=== PATIENT | male | born 2000 | race African-American/Black ===

== ENCOUNTER 2020-10-10 18:49 | Emergency (ER) | payer SELFPAY ==
[~2020-10-10] VITALS: Ht 182.8 cm; Wt 78.3 kg
[2020-10-10] MEDS ORDERED: DOXYCYCLINE 100 MG (VIBRAMYCIN) TABLET PO STA (19:18)
[2020-10-10] MEDS ORDERED: DOXY100T2 PO (19:22)
[2020-10-10] MEDS ORDERED: TRM50T PO (19:22)
--- NOTE | 2020-10-10 19:25 | ED Integumentary General ---
General Chief Complaint: Skin/Wound Problems Stated Complaint: ABSCESS ON RT BUTTOCK Nursing Triage Note: pt reports perianal abscess, seen at [facility] [place] and they could not do anything for him. States size of baseball, unable to sit, history of same. Source: patient Exam Limitations: no limitations History of Present Illness Date Seen by Provider: Oct 10, 2020 Time Seen by Provider: 19:10 Initial Comments 19-year-old male presents with complaint of abscess on his buttock for the past 3-4 days. Seen at the urgent care and sent to the ER. States had similar abscesses in different areas, most recently in the last 2 months which was incised and drained and healed without incident. Allergies and Home Medications Allergies Coded Allergies: No Known Drug Allergies (Unverified , 10/10/20) Home Medications Doxycycline Hyclate 100 Mg Tablet, 100 MG PO BID Prescribed by: ROB CALLAHAN on 10/10/201921 Tramadol HCl 50 Mg Tablet, 50 MG PO Q6H PRN for PAIN Prescribed by: ROB CALLAHAN on 10/10/201931 Patient Home Medication List Home Medication List Reviewed: Yes Review of Systems Review of Systems Constitutional: No chills, No fever, No malaise Gastrointestinal: No abdominal pain, No constipation, No diarrhea, No nausea, No vomiting Skin: see HPI, lumps; No pruritus, No rash Past Wgbwyxu-Zsorsy-Dyvnpw Hx Past Med/Social Hx: Reviewed Nursing Past Med/Soc Hx Patient Social History Recent Foreign Travel: No Contact w/Someone Who Travel: No Recent Infectious Disease Expo: No Recent Hopitalizations: No Ebola Symptoms: Denies Symptoms Listed Physical Abuse: No Sexual Abuse: No Seasonal Allergies Seasonal Allergies: No Past Medical History Surgeries: Yes Respiratory: Yes Asthma Cardiac: No Neurological: No Genitourinary: No Gastrointestinal: No Musculoskeletal: No Endocrine: No HEENT: No Cancer: No Psychosocial: No Integumentary: Yes Blood Disorders: No Adverse Reaction/Blood Tranf: No Physical Exam Vital Signs Vital Signs - First Documented 10/10/20 19:00 Temp 36.8 Pulse 115 Resp 14 B/P (MAP) 140/76 Pulse Ox 95 O2 Delivery Room Air Capillary Refill : General Appearance: WD/WN, no apparent distress Skin: normal color, warm/dry, other (R buttock w indurated area (not saurabh-anal) of mid buttock at gluteal crease. Indurated firm tissue without fluctuance or pointing. No surrounding erythema or drainage.) Progress/Results/Core Measures Results/Orders My Orders Orders - ROB CALLAHAN DO Doxycycline Hyclate Tablet (Vibramycin T (10/10/20 19:18) Tramadol Tablet (Ultram Tablet) (10/10/20 19:30) Medications Given in ED Current Medications Medications Dose Ordered Sig/Harjit Route Start Time Stop Time Status Last Admin Dose Admin Tramadol HCl 50 mg ONCE ONCE PO 10/10/20 19:30 10/10/20 19:31 DC 10/10/20 19:34 50 MG Vital Signs/I&O 10/10/20 19:00 Temp 36.8 Pulse 115 Resp 14 B/P (MAP) 140/76 Pulse Ox 95 O2 Delivery Room Air Progress Progress Note : Progress Note Discussed options of po antibiotics with symptomatic and expectant care of avoiding contact, sitz baths and follow up if not improving in 2 to 3 days to re-consider I&D. Explained that at this stage, I&D seemed unlikely to make a difference. Departure Impression Primary Impression: Abscess Disposition: 01 HOME, SELF-CARE Condition: Stable Departure-Patient Inst. Decision time for Depature: 19:21 Patient Instructions: Skin Abscess Add. Discharge Instructions: Follow up with your PCP or the nearest ER if you are not improving in 2 to 3 days All discharge instructions reviewed with patient and/or family. Voiced understanding. Scripts Tramadol HCl (Tramadol HCl) 50 Mg Tablet 50 MG PO Q6H PRN for PAIN for 3 Days, #12 TAB 0 Refills Prov: ROB CALLAHAN DO 10/10/20 Doxycycline Hyclate (Doxycycline Hyclate) 100 Mg Tablet 100 MG PO BID, #20 TAB 0 Refills Prov: ROB CALLAHAN DO 10/10/20 ROB CALLAHAN DO Oct 10, 2020 19:25
== END 2020-10-10 19:46 | disposition home or self-care (01) ==
LOC: ER FS 18:51
DX: L02.31 Cutaneous abscess of buttock (principal)
CPT/HCPCS: 99283

== ENCOUNTER 2022-06-09 16:27 | Emergency (ER) | payer OTHER ==
[~2022-06-09] VITALS: Ht 182 cm; Wt 82.0 kg
[~2022-06-09 16:27] MED LIST: DOXY100T2 PO; TRM50T PO
[2022-06-09 16:37] VITALS: BP 133/74
[2022-06-09 16:57] LABS: BILIRUBIN,URINE NEGATIVE (NEGATIVE); CLARITY,URINE CLEAR; COLOR,URINE YELLOW; GLUCOSE, URINE (UA) NEGATIVE (NEGATIVE); KETONES,URINE NEGATIVE (NEGATIVE); LEUKOCYTE ESTERASE ,URINE NEGATIVE (NEGATIVE); NITRITE,URINE NEGATIVE (NEGATIVE); PH,URINE 5.5 (5-9); PROTEIN,URINE NEGATIVE (NEGATIVE)
[2022-06-09 17:06] LABS: BACTERIA,URINE NEGATIVE /HPF; SQUAMOUS EPITHELIAL CELL,UR 0-2 /HPF
[2022-06-09 17:07] LABS: AMORPHOUS SEDIMENT,UR RARE AMOR URATES /LPF
--- NOTE | 2022-06-09 17:19 | ED General ---
General Chief Complaint: General Problems/Pain Stated Complaint: WC,SMASHED GENITALS Nursing Triage Note: Patient has presented to ER with cc of groin injury. Patient reports that he was at work and had to pry apart a mold and pinched his penis getting the mold apart. Source of Information: Patient Exam Limitations: No Limitations History of Present Illness Date Seen by Provider: Jun 09, 2022 Time Seen by Provider: 16:40 Initial Comments 21-year-old male patient without history of medical problems presented to ER with complaining of injury to genital area. Patient states he was at work and while tried to apart a mold, pinched his penis that happened prior to arrival to ER. Patient rated his pain as a moderate pain and denies nausea and vomiting, abdominal pain, other injuries. Patient did not urinated after his injury. Allergies and Home Medications Allergies Coded Allergies: No Known Drug Allergies (Unverified , 10/10/20) Patient Home Medication List Home Medication List Reviewed: Yes Doxycycline Hyclate (Doxycycline Hyclate) 100 Mg Tablet, 100 MG PO BID Prescribed by: ROB CALLAHAN on 10/10/201921 Ibuprofen (Ibuprofen) 800 Mg Tablet, 800 MG PO Q8H PRN for PAIN Prescribed by: Steff hawley on 06/09/22 172 Tramadol HCl (Tramadol HCl) 50 Mg Tablet, 50 MG PO Q6H PRN for PAIN Prescribed by: ROB CALLAHAN on 10/10/20 193 Review of Systems Review of Systems Constitutional: no symptoms reported EENTM: no symptoms reported Respiratory: no symptoms reported Cardiovascular: no symptoms reported Gastrointestinal: no symptoms reported Genitourinary: see HPI Musculoskeletal: no symptoms reported Skin: no symptoms reported Psychiatric/Neurological: No Symptoms Reported Hematologic/Lymphatic: No Symptoms Reported Immunological/Allergic: no symptoms reported All Other Systems Reviewed Negative Unless Noted: Yes Past Togxqso-Lnbcju-Wldpab Hx Patient Social History Tobacco Use?: Yes Tobacco type used: Cigarettes Smoking Status: Current Everyday Smoker Seasonal Allergies Seasonal Allergies: No Past Medical History Surgeries: Yes Respiratory: Yes Asthma Cardiac: No Neurological: No Genitourinary: No Gastrointestinal: No Musculoskeletal: No Endocrine: No HEENT: No Cancer: No Psychosocial: No Integumentary: Yes Blood Disorders: No Adverse Reaction/Blood Tranf: No Physical Exam Vital Signs Vital Signs - First Documented 06/09/22 16:37 Temp 36.3 Pulse 64 Resp 16 B/P (MAP) 133/74 (93) Pulse Ox 100 Capillary Refill : Height, Weight, BMI Height: '" Weight: lbs. oz. kg; 24.00 BMI Method: General Appearance: Mild Distress Eyes: Bilateral Eye Normal Inspection HEENT: PERRL/EOMI Neck: Full Range of Motion, Normal Inspection Respiratory: Chest Non Tender, Lungs Clear, Normal Breath Sounds, No Accessory Muscle Use, No Respiratory Distress Cardiovascular: Regular Rate, Rhythm, No Edema, No Gallop Gastrointestinal: Normal Bowel Sounds, No Organomegaly, No Pulsatile Mass, Non Tender Genital/Rectal: Normal Genital Exam, Other (Genital exam in presence of mat inspector showed no edema,erythema or hematoma of penis, mild tenderness, no blood on meatus, normal scrotal exam) Back: Normal Inspection Extremity: Normal Inspection Neurologic/Psychiatric: Alert, Oriented x3 Progress/Results/Core Measures Suspected Sepsis SIRS Temperature: Pulse: 64 Respiratory Rate: 16 Blood Pressure 133 /74 Mean: 93 Results/Orders Lab Results Laboratory Tests Test 06/09/22 16:46 Range/Units Urine Color YELLOW Urine Clarity CLEAR Urine pH 5.5 5-9 Urine Specific [place] 1.025 H 1.016-1.022 Urine Protein NEGATIVE NEGATIVE Urine Glucose (UA) NEGATIVE NEGATIVE Urine Ketones NEGATIVE NEGATIVE Urine Nitrite NEGATIVE NEGATIVE Urine Bilirubin NEGATIVE NEGATIVE Urine Urobilinogen 0.2 < = 1.0 MG/DL Urine Leukocyte Esterase NEGATIVE NEGATIVE Urine RBC (Auto) NEGATIVE NEGATIVE Urine RBC NONE /HPF Urine WBC NONE /HPF Urine Squamous Epithelial Cells 0-2 /HPF Urine Crystals PRESENT H /LPF Urine Amorphous Sediment RARE BRONWYN URATES H /LPF Urine Bacteria NEGATIVE /HPF Urine Casts NONE /LPF Urine Mucus NEGATIVE /LPF Urine Culture Indicated NO My Orders Orders - STEFF HAWLEY MD Ua Culture If Indicated (06/09/22 16:47) Ibuprofen Tablet (Motrin Tablet) (06/09/22 17:30) Medications Given in ED Current Medications Medications Dose Ordered Sig/Harjit Route Start Time Stop Time Status Last Admin Dose Admin Ibuprofen 800 mg ONCE ONCE PO 06/09/22 17:30 06/09/22 17:31 06/09/22 17:25 800 MG Vital Signs/I&O 06/09/22 16:37 Temp 36.3 Pulse 64 Resp 16 B/P (MAP) 133/74 (93) Pulse Ox 100 Capillary Refill : Blood Pressure Mean: 93 Progress Note : Progress Note Evaluation of patient in ER showed 21-year-old male patient with work-related injury to penis area. In exam patient did not have deformity, edema, contusion or erythema of penis or scrotum. Patient was able to urinate and UA did not show blood. Indirect ice applied on genital area and patient advised to continue apply ice and prescription for ibuprofen was given. Patient advised to follow-up with primary care physician or return to ER as needed. Departure Impression Primary Impression: Penis injury Qualified Codes: S39.94XA - Unspecified injury of external genitals, initial encounter Disposition: HOME, SELF-CARE Condition: Improved Departure-Patient Inst. Decision time for Depature: 17:28 Referrals: NO,LOCAL PHYSICIAN (PCP/Family) Primary Care Physician Patient Instructions: Acute Pain, Adult Add. Discharge Instructions: Drink plenty of liquid Apply ice indirectly to genital area Follow-up with your primary care physician or return to ER as needed All discharge instructions reviewed with patient and/or family. Voiced understanding. Scripts Ibuprofen (Ibuprofen) 800 Mg Tablet 800 MG PO Q8H PRN for PAIN, #20 TAB 0 Refills Prov: STEFF HAWLEY MD 06/09/22 Work/School Note: Work Release Form Return to Work: Jun 11, 2022 STEFF HAWLEY MD Jun 09, 2022 17:19
[2022-06-09] MEDS ORDERED: IBUP-1780 PO (17:29)
[2022-06-09] MEDS ORDERED: IBUPROFEN 800 MG (MOTRIN) TAB PO ONE (17:30)
== END 2022-06-09 17:35 | disposition home or self-care (01) ==
LOC: EDUNIT# 16:27 → ER FS 16:29
DX: S39.94XA Unspecified injury of external genitals, initial encounter (principal); F17.210 Nicotine dependence, cigarettes, uncomplicated; Z28.310 Unvaccinated for COVID-19; W23.0XXA Caught, crushed, jammed, or pinched between moving objects, initial encounter; Y92.59 Other trade areas as the place of occurrence of the external cause; Y99.0 Civilian activity done for income or pay
CPT/HCPCS: 81000; 99283